=== PATIENT | male | born 1965 | race Caucasian/White ===

== ENCOUNTER 2017-07-18 13:24 | Emergency (ER) | payer BC ==
[2017-07-18] MEDS ORDERED: diphenhydrAMINE 50 MG/ML SDV IM ONE (13:27)
[2017-07-18] MEDS ORDERED: EPINEPHrine 1 MG/ML SDV SUBCUT ONE (13:27)
[2017-07-18] MEDS ORDERED: methylPREDNISolone Sodium Succinate 125 MG/2 ML SDV IM ONE (13:27)
[2017-07-18] MEDS ORDERED: methylPREDNISolone Sodium Succinate 125 MG/2 ML SDV IVPUSH ONE (13:33)
[2017-07-18] MEDS ORDERED: diphenhydrAMINE 50 MG/ML SDV IVPUSH ONE (13:34)
[2017-07-18] MEDS ORDERED: Sodium Chloride 0.9% 1,000 ML IV ONE (13:35)
--- NOTE | 2017-07-18 13:38 | EDM.PDOC ---
ED HPI GENERAL MEDICAL PROBLEM - General Chief Complaint: Allergic Reaction Stated Complaint: STUNG BY BEES IN NECK Time Seen by Provider: 07/18/17 13:36 Source of Information: Reports: Patient, Family History Limitations: Reports: No Limitations - History of Present Illness INITIAL COMMENTS - FREE TEXT/NARRATIVE: Pt was weed whipping when stung by several bees. No known allergy. Was last stung as a kid. Did take Benadryl 50mg po at home but noted hiving to back so drove him in. Now with shortness of breath. Onset: Today, Sudden Onset Date: 07/18/17 Onset Time: 13:00 Duration: Getting Worse Location: Reports: Face, Neck, Chest, Back Severity: Moderate Improves with: Reports: None Worsens with: Reports: None Associated Symptoms: Reports: Rash Treatments [employer]: Reports: Other (see below) - Related Data Allergies Allergy/AdvReac Type Severity Reaction Status Date / Time No Known Allergies Allergy Verified 07/18/17 13:36 Home Meds: Home Meds NK [No Known Home Meds] 07/18/17 [History] ED ROS ALLERGIC REACTION - Review of Systems Review Of Systems: See Below Constitutional: Reports: No Symptoms HEENT: Reports: No Symptoms Respiratory: Reports: Shortness of Breath, Wheezing Cardiovascular: Reports: No Symptoms Endocrine: Reports: No Symptoms GI/Abdominal: Reports: No Symptoms Skin: Reports: Rash ED EXAM GENERAL NO PERIP PULSE - Physical Exam Exam: See Below Exam Limited By: No Limitations General Appearance: Alert, WD/WN, Moderate Distress Ears: Normal External Exam, Normal Canal, Hearing Grossly Normal, Normal TMs Nose: Normal Inspection, Normal Mucosa, No Blood Throat/Mouth: Normal Inspection, Normal Lips, Normal Teeth, Normal Gums, Normal Oropharynx, Normal Voice, No Airway Compromise Head: Normocephalic, Facial Swelling Neck: Other (hives to neck) Respiratory/Chest: Respiratory Distress, Wheezing (throughout) Cardiovascular: Normal Peripheral Pulses, Regular Rate, Rhythm, No Edema, No Gallop, No JVD, No Murmur, No Rub, Tachycardia Neurological: Alert, Oriented, CN II-XII Intact, Normal Cognition, Normal Gait, Normal Reflexes, No Motor/Sensory Deficits Psychiatric: Anxious Skin Exam: Other (hives to neck, back, abdomen, face) Course - Vital Signs Last Recorded V/S: Last Vital Signs Temp 98.6 F 07/18/17 13:34 Pulse 124 H 07/18/17 13:48 Resp 16 07/18/17 13:48 BP 147/103 H 07/18/17 13:48 Pulse Ox 100 07/18/17 13:48 - Orders/Labs/Meds Meds: Medications Discontinued Medications Generic Name Dose Route Start Last Admin Trade Name Rashawn PRN Reason Stop Dose Admin Diphenhydramine HCl 50 mg 07/18/17 13:34 07/18/17 13:40 Benadryl IVPUSH 07/18/17 13:35 50 mg ONETIME ONE Administration Epinephrine HCl 0.3 mg 07/18/17 13:27 07/18/17 13:39 Adrenalin 1:1000 SUBCUT 07/18/17 13:28 0.3 mg ONETIME ONE Administration Sodium Chloride 1,000 mls @ 999 drops/sec 07/18/17 13:35 07/18/17 13:41 Normal Saline IV 07/18/17 13:36 999 drops/sec .BOLUS ONE Administration Methylprednisolone Sodium Succinate 125 mg 07/18/17 13:33 07/18/17 13:40 Solu-Medrol IVPUSH 07/18/17 13:34 125 mg ONETIME ONE Administration Departure - Departure Time of Disposition: 14:17 Disposition: Home, Self-Care 01 Condition: Good Clinical Impression: Bee sting-induced anaphylaxis Qualifiers: Encounter type: initial encounter Injury intent: accidental or unintentional Qualified Code(s): T63.441A - Toxic effect of venom of bees, accidental ( unintentional), initial encounter - Discharge Information Instructions: Anaphylactic Reaction Referrals: PCP,None [Primary Care Provider] - Forms: ED Department Discharge Additional Instructions: Pt responds well to treatment. Given Epinephrine 0.3mg subcut, Benadryl 50mg IV and Solumedrol 125mg IV. Oxygen applied and saturation improves. Hives improved greatly. Pt's wheezing resolved. IV NS 1000ml infused. Pt to take Benadryl 50mg q 8 hours as needed. May use Zyrtec 10mg po daily x 1 week. Rx for EpiPen 2 pack as needed and its use discussed. Discussed anaphylaxis treatment and recognition. Pt b/p elevated while here. Encouraged to followup with primary care to discuss this. Encouraged smoking cessation, caffeine and salt reduction and alcohol reduction. - Problem List & Annotations (1) Bee sting-induced anaphylaxis SNOMED Code(s): 396207537 Code(s): T63.441A - TOXIC EFFECT OF VENOM OF BEES, ACCIDENTAL, INIT Status : Acute Priority: Medium Current Visit: Yes Qualifiers: Encounter type: initial encounter Injury intent: accidental or unintentional Qualified Code(s): T63.441A - Toxic effect of venom of bees, accidental (unintentional), initial encounter
[2017-07-18 14:42] VITALS: BP 134/83
== END 2017-07-18 14:49 | disposition home or self-care (01) ==
LOC: JP.ED 13:24
DX: T63.441A Toxic effect of venom of bees, accidental (unintentional), initial encounter (principal)
CPT/HCPCS: 96361; 96372; 96374; 96375; 99283; J0171; J1200; J2930; J7040